=== PATIENT | female | born 1930 | race Caucasian/White ===

== ENCOUNTER 2020-01-01 15:33 | Inpatient (IN) | payer MEDICARE ==
[~2020-01-01] VITALS: Ht 162.6 cm; Wt 67.6 kg
--- NOTE | 2020-01-01 16:00 | NUR ---
Pt o2sat at 89% on RA pt placed on supplemental O2 via NC at 3lpm. Reassesed Pt O2Sat at 95% assisted pt to transfer from wheelchair to rney Pt is Aox1(name) Pt is repetitively saying " help me" noncompliant to wearing mask while coughing. Pt reoriented, redirected twice Daughter at bedside
--- NOTE | 2020-01-01 16:01 | NUR ---
AIRBORNE/DROPLET/CONTACT ISOLATION PRECAUTIONS PER POLICY INITIATED PT NON COMPLIANT ON WEARING PPE(MASK) AND NEEDS REORIENTATION/REMINDER TO WEAR IT WHEN COUGHING
[2020-01-01 16:16] LABS: BASOPHILS # (AUTO) 0.1 K/uL (0.0-8.0); BASOPHILS % (AUTO) 0.5 % (0.0-2.0); EOSINOPHILS # (AUTO) 0.3 K/uL (0.0-0.7); EOSINOPHILS % (AUTO) 2.6 % (0.0-7.0); HEMOGLOBIN 14.1 g/dL (10.9-14.3); LYMPHOCYTES # (AUTO) 1.7 K/uL (20.0-40.0); LYMPHOCYTES % (AUTO) 14.3 % (20.5-51.5); MEAN CORPUSCULAR HEMOGLOBIN 32.9 uug (24.7-32.8); MEAN CORPUSCULAR HGB CONC 33 g/dL (32.3-35.6); MEAN CORPUSCULAR VOLUME 100.1 fL (75.5-95.3); MONOCYTES % (AUTO) 8.3 % (0.0-11.0); NEUTROPHILS # (AUTO) 8.6 K/uL (1.8-8.9); NEUTROPHILS % (AUTO) 74.3 % (38.5-71.5); PLATELET COUNT (AUTO) 388 K/uL (179-408); WHITE BLOOD COUNT (AUTO) 11.6 K/uL (3.8-11.8)
[2020-01-01 16:22] LABS: CREATININE 1.2 mg/dL (0.6-1.3)
[2020-01-01 16:28] LABS: BILIRUBIN,DIRECT 0.1 mg/dL (0.0-0.2); BILIRUBIN,TOTAL 0.4 mg/dL (0.2-1.0)
[2020-01-01 16:41] LABS: THYROID STIMULATING HORMONE 7.126 mIU/mL (0.358-3.740)
[2020-01-01 16:45] LABS: *BILIRUBIN,URIN NEGATIVE (NEGATIVE); *BLOOD, URINE NEGATIVE (NEGATIVE); *COLOR,URINE YELLOW (YELLOW); *KETONES,URINE NEGATIVE (NEGATIVE); *UROBILINOGEN,URINE 0.2 E.U./dl (NORMAL); LEUKOCYTE ESTERASE ,URINE TRACE (NEGATIVE); NITRITE, URINE NEGATIVE (NEGATIVE); PH,URINE 5.5 (5.0-8.0); UGLUCOSE NEGATIVE (NEGATIVE)
[2020-01-01 16:46] LABS: *CLARITY,URINE HAZY (CLEAR)
[2020-01-01 16:50] LABS: BACTERIA,URINE FEW /HPF (NONE SEEN); MUCUS,URINE MODERATE /LPF (0-FEW); RBC,URINE 0-3 /HPF (0-3); SQUAMOUS EPITHELIAL CELL,UR MODERATE /HPF (NONE SEEN)
--- NOTE | 2020-01-01 17:00 | NUR ---
Pt transported to ct via [facility] by [facility]
--- NOTE | 2020-01-01 17:19 | NUR ---
pt back from ct via [facility] by tech
[2020-01-01] MEDS ORDERED: METRONIDAZOLE 500 MG/NS 100ML 100 ML IV ONE (17:58)
[2020-01-01] MEDS ORDERED: LEVOFLOXACIN 500 MG/D5W 100 ML ONE (17:58)
[2020-01-01] MEDS ORDERED: LEVOFLOXACIN 500 MG/D5W 100ML PIGGYBACK IV ONE (18:00)
[2020-01-01] MEDS ORDERED: METRONIDAZOLE 500 MG/NS 100 ML PIGGYBACK IV ONE (18:00)
--- NOTE | 2020-01-01 18:25 | NUR ---
SWALLOW EVAL DONE PT ABLE TO SIP AND SWALLOW 30ML OF WATER
--- NOTE | 2020-01-01 18:29 | NUR ---
PT ABLE TO TOLERATE 3 SPOONFULS OF VANILLA PUDDING AND ADDITIONAL 30ML OF WATER
[2020-01-01] MEDS ORDERED: LEVOTHYROXINE SODIUM 75 MCG TABLET PO ONE (18:45)
--- NOTE | 2020-01-01 18:59 | NUR ---
HAND OFF AND SBAR GIVEN TO INCOMING ENROLLMENT ADVISOR RN
--- NOTE | 2020-01-01 19:00 | NUR ---
Pt. admitted to [facility] , under care of Dr. Junior Belongs List completed
[2020-01-01] MEDS ORDERED: ACETAMINOPHEN 325 MG TABLET PO PRN (20:30)
[2020-01-01] MEDS ORDERED: MAGNESIUM HYDROXIDE 30 ML LIQUID UDC PO PRN (20:30)
[2020-01-01] MEDS ORDERED: ONDANSETRON 4 MG/2 ML VIAL IV PRN (20:30)
[2020-01-01] MEDS ORDERED: MORPHINE SULFATE 2 MG/1 ML DISP.SYRIN IV PRN (20:30)
[2020-01-01] MEDS ORDERED: BISACODYL 10 MG SUPP.RECT RC PRN (20:45)
--- NOTE | 2020-01-01 20:45 | NUR ---
Received patient awake and confused. Patient shows no signs or symptoms of distress at this time. Patient is on isolation for possible COVID. No fever or shortness of breath noted. Received admitting orders from Dr. Junior. Bed set to lowest position. Call light within reach. Will continue to monitor patient.
[2020-01-01 21:20] VITALS: BP 130/81
[2020-01-01] MEDS: IV 1/2NS 1000 ML 1,000 ML IV PRN (21:29)
[2020-01-01] MEDS: AZITHROMYCIN IV 500 MG in IV DEXTROSE 5% 250 ML IV SCH (21:29)
[2020-01-01] MEDS: DOCUSATE SODIUM 250 MG CAPSULE PO SCH (21:30)
[2020-01-01] MEDS: ALPRAZOLAM 0.25 MG TABLET PO PRN (21:30)
--- NOTE | 2020-01-01 21:30 | NUR ---
Patient agitated and continues to ask for help. Asked how nurse can help but patient states, "I don't know." Extra blankets given to patient because she states she is cold. PRN Xanax given to patient as per MD order to help with agitation. Will continue to monitor patient.
[2020-01-01] MEDS: CEFTRIAXONE 1 G in IV DEXTROSE 5% 50 ML IV SCH (23:03)
[2020-01-02] VITALS: BP 146/79
--- NOTE | 2020-01-02 01:23 | NUR ---
Patient shows no signs or symptoms of distress this time. Patient is resting comfortably at bed. Call light within reach. Bed set to lowest position. NSR on tele monitor. Will continue to monitor patient.
--- NOTE | 2020-01-02 03:47 | NUR ---
Patient has frequent PVCS with an occasional bigeminy. Vital signs are stable. Patient shows no signs or symptoms of distress. Will continue to monitor patient.
[2020-01-02 04:05] VITALS: BP 134/68
[2020-01-02 06:46] LABS: BASOPHILS % (AUTO) 0.3 % (0.0-2.0); EOSINOPHILS # (AUTO) 0.3 K/uL (0.0-0.7); EOSINOPHILS % (AUTO) 2.4 % (0.0-7.0); HEMATOCRIT 39.2 % (31.2-41.9); HEMOGLOBIN 13.4 g/dL (10.9-14.3); LYMPHOCYTES # (AUTO) 2.3 K/uL (20.0-40.0); LYMPHOCYTES % (AUTO) 21.2 % (20.5-51.5); MEAN CORPUSCULAR HGB CONC 34 g/dL (32.3-35.6); MEAN CORPUSCULAR VOLUME 99.4 fL (75.5-95.3); MONOCYTES % (AUTO) 8.8 % (0.0-11.0); NEUTROPHILS # (AUTO) 7.3 K/uL (1.8-8.9); NEUTROPHILS % (AUTO) 67.3 % (38.5-71.5); PLATELET COUNT (AUTO) 351 K/uL (179-408); RED BLOOD CELL COUNT(AUTO) 3.95 MIL/uL (3.63-4.92); WHITE BLOOD COUNT (AUTO) 10.9 K/uL (3.8-11.8)
--- NOTE | 2020-01-02 07:26 | NUR ---
Patient shows no signs or symptoms of distress at this time. Endorsed patient to AM shift in stable condition.
--- NOTE | 2020-01-02 07:30 | NUR ---
received patient in bed, awake, confused and kept calling out for help and daughter. On O2 @ 2L, took off mask. No signs of SOB. IV site on right AC 20g with 0.45 NS infusing @ 60cc/hr. Not able to answer questions correctly and kept asking for help. When asked what she needs, answered "I don't know." Patient trying to get up and get out of bed. Will call MD for restraints order. Bed alarm on, locked in lowest position with siderails 3x up. Will continue to monitor.
[2020-01-02 07:47] LABS: BILIRUBIN,TOTAL 0.6 mg/dL (0.2-1.0); CREATININE 1.1 mg/dL (0.6-1.3); MAGNESIUM 1.7 mg/dL (1.8-2.4); PHOSPHOROUS 4.6 mg/dL (2.5-4.9); POTASSIUM 3.8 mmol/L (3.5-5.1); TOTAL PROTEIN, SERUM 6.4 g/dL (6.4-8.2)
[2020-01-02 08:00] VITALS: BP 129/64
[2020-01-02] MEDS: MEMANTINE HCL 10 MG TABLET PO SCH ×2 (08:36→17:39)
[2020-01-02] MEDS: PANTOPRAZOLE SODIUM 40 MG TABLET.DR PO SCH (08:37)
[2020-01-02] MEDS: MULTIVITAMINS,THERAPEUTIC TABLET PO SCH (08:37)
[2020-01-02] MEDS ORDERED: DONEPEZIL 10 MG TABLET PO SCH (09:00)
[2020-01-02] MEDS ORDERED: Medication Not On Formulary EA (Multivitamins (Multivitamin) 1 TAB) PO SCH (09:00)
--- NOTE | 2020-01-02 09:25 | NUR ---
Patient refused medications. Tried to give with apple sauce and patient tried to spit out meds. Refused breakfast and would spit out food and water. Cleaned and changed patient and sheets with HEAD SOFT SUGAR OPERATOR and patient combative. Able to quickly give medications with apple sauce. Applied bilateral soft wrist restraints per MD order. Will continue to monitor.
--- NOTE | 2020-01-02 10:10 | NUR ---
rapid flu swab done.
[2020-01-02 12:10] VITALS: BP 115/65
[2020-01-02] MEDS: MAGNESIUM SULFATE/D5W 100 ML IV SCH ×2 (12:39→14:09)
[2020-01-02] MEDS: POTASSIUM CHLORIDE 50 ML IV SCH ×2 (15:17→17:39)
[2020-01-02 16:00] VITALS: BP 150/65
--- NOTE | 2020-01-02 16:15 | NUR ---
IV on right AC got dislodged. Patient kept bending and moving arms trying to take out restraints. Late IV potassium administration due to multiple IV attempts from different nurses. Patient very combative and patient is a hard stick.
--- NOTE | 2020-01-02 19:45 | NUR ---
Received patient awake and confused. Patient screams saying "help me" but when asked how nurse can help, patient denies needing any help. Patient shows no signs or symptoms of distress at this time. Vital signs stable. Has dry cough but does not have a fever or shortness of breath. Bilateral soft wrist restraints in place for safety. Patient attempts to remove IV without restraints. Will continue to monitor patient.
[2020-01-02] MEDS: AZITHROMYCIN IV 500 MG in IV DEXTROSE 5% 250 ML IV SCH (20:24)
[2020-01-02] MEDS: DOCUSATE SODIUM 100 MG CAPSULE PO SCH (20:24)
[2020-01-02 21:58] VITALS: BP 116/63
[2020-01-02] MEDS: CEFTRIAXONE 1 G in IV DEXTROSE 5% 50 ML IV SCH (22:43)
[2020-01-03 00:46] VITALS: BP 127/65
[2020-01-03] MEDS: IV 1/2NS 1000 ML 1,000 ML IV PRN ×2 (00:50→16:08)
--- NOTE | 2020-01-03 02:17 | NUR ---
Daughter unsure of code status for patient. Social service referral ordered.
[2020-01-03 04:02] VITALS: BP 140/78
[2020-01-03 06:10] LABS: BASOPHILS % (AUTO) 0.3 % (0.0-2.0); EOSINOPHILS # (AUTO) 0.3 K/uL (0.0-0.7); EOSINOPHILS % (AUTO) 2.5 % (0.0-7.0); HEMATOCRIT 39.5 % (31.2-41.9); HEMOGLOBIN 13.3 g/dL (10.9-14.3); LYMPHOCYTES # (AUTO) 2.2 K/uL (20.0-40.0); LYMPHOCYTES % (AUTO) 21.6 % (20.5-51.5); MEAN CORPUSCULAR HEMOGLOBIN 33.1 uug (24.7-32.8); MEAN CORPUSCULAR HGB CONC 34 g/dL (32.3-35.6); MEAN CORPUSCULAR VOLUME 98.4 fL (75.5-95.3); MONOCYTES % (AUTO) 9.7 % (0.0-11.0); NEUTROPHILS # (AUTO) 6.8 K/uL (1.8-8.9); NEUTROPHILS % (AUTO) 65.9 % (38.5-71.5); PLATELET COUNT (AUTO) 351 K/uL (179-408); RED BLOOD CELL COUNT(AUTO) 4.02 MIL/uL (3.63-4.92); WHITE BLOOD COUNT (AUTO) 10.3 K/uL (3.8-11.8)
[2020-01-03 06:37] LABS: CREATININE 1.1 mg/dL (0.6-1.3); MAGNESIUM 1.9 mg/dL (1.8-2.4); PHOSPHOROUS 4.3 mg/dL (2.5-4.9); POTASSIUM 3.8 mmol/L (3.5-5.1)
--- NOTE | 2020-01-03 07:26 | NUR ---
Patient shows no signs or symptoms of distress at this time. Patient resting comfortably in bed. Patient endorsed to AM nurse in stable condition.
--- NOTE | 2020-01-03 08:05 | NUR ---
Received patient in bed, No signs of distress noted. No signs of distress noted. No SOB. afebrile. No signs of pain or discomfort. On droplet and contact Isolation for r/o covid 19. Proper PPE strictly Observed. Kept clean and comfortable. Will continue to monitor.
[2020-01-03] MEDS: MULTIVITAMINS,THERAPEUTIC TABLET PO SCH (08:32)
[2020-01-03] MEDS: MEMANTINE HCL 10 MG TABLET PO SCH ×2 (08:32→16:08)
[2020-01-03] MEDS: PANTOPRAZOLE SODIUM 40 MG TABLET.DR PO SCH (08:32)
[2020-01-03 11:51] VITALS: BP 146/80
--- NOTE | 2020-01-03 18:21 | NUR ---
Patient in bed, awake and verbally responsive. No signs of distress noted. No SOB. saturating 96% on 1LPM. No complain of Pain or discomfort. awaiting for covid 19 test result. remains on contact/droplet Isolation for r/o covid19. All needs attended and met. kept clean and comfortable. Will endorse to Oncoming Nurse.
[2020-01-03 20:00] VITALS: BP 138/62
--- NOTE | 2020-01-03 20:00 | NUR ---
Received patient awake and alert in bed, no signs of acute distress noted. Patient is oriented to self and place. On contact and droplet isolation for r/o COVID. IVF running on the right wrist no s/s of infection or infiltration noted. Patient is on bilateral wrist restraints. Circulation is good. Safety measures initiated. Bed is low and locked, call light within reach. Bed alarm on. Will continue to monitor.
[2020-01-03] MEDS: AZITHROMYCIN IV 500 MG in IV DEXTROSE 5% 250 ML IV SCH (20:34)
[2020-01-03] MEDS: DOCUSATE SODIUM 100 MG CAPSULE PO SCH (20:34)
[2020-01-03] MEDS: ALPRAZOLAM 0.25 MG TABLET PO PRN (21:45)
[2020-01-03] MEDS: CEFTRIAXONE 1 G in IV DEXTROSE 5% 50 ML IV SCH (21:45)
--- NOTE | 2020-01-03 22:17 | NUR ---
Administered PRN Xanax, patient becoming anxious calling for daughter and asking for help, but unable to express what she needs. Patient cleaned and repositioned. Checked restraints, good circulation. Will continue to monitor.
[2020-01-04] VITALS: BP 152/79
[2020-01-04] MEDS ORDERED: Z GUARD REMEDY PASTE 57 GM TUBE TOP PRN (00:45)
[2020-01-04 04:19] VITALS: BP 157/68
--- NOTE | 2020-01-04 06:09 | NUR ---
Patient slept intermittently throughout the night. SR on the monitor. Vitals WNL. IVF running. Medications given as ordered. Restraints monitored. Will endorse to next shift.
[2020-01-04] MEDS: PANTOPRAZOLE SODIUM 40 MG TABLET.DR PO SCH (07:28)
--- NOTE | 2020-01-04 08:00 | NUR ---
Received patient in bed, awake and verbally responsive. No signs of distress noted. No SOB. saturating 96% on 1LPM, No complain of Pain or discomfort. awaiting for covid 19 test result. Remains on droplet and contact Isolation. Proper PPE strictly Observed. Kept clean and comfortable. Will continue to monitor.
[2020-01-04] MEDS: MEMANTINE HCL 10 MG TABLET PO SCH ×2 (08:29→16:24)
[2020-01-04] MEDS: MULTIVITAMINS,THERAPEUTIC TABLET PO SCH (08:29)
--- NOTE | 2020-01-04 09:05 | NUR ---
Covid [address] Junior made aware.
[2020-01-04] MEDS: IV 1/2NS 1000 ML 1,000 ML IV PRN (11:18)
[2020-01-04 11:34] VITALS: BP 118/55
[2020-01-04 15:35] VITALS: BP 120/79
--- NOTE | 2020-01-04 18:19 | NUR ---
Patient on bed, awake and verbally responsive. No signs of distress noted. No SOB. Afebrile. No complain of Pain or discomfort. covid19 resulted Negative, Dr. Junior made aware. Kept clean and comfortable. All needs attended and met. Will endorse to Oncoming Nurse.
[2020-01-04] MEDS: AZITHROMYCIN IV 500 MG in IV DEXTROSE 5% 250 ML IV SCH (20:10)
[2020-01-04] MEDS: DOCUSATE SODIUM 100 MG CAPSULE PO SCH (20:10)
[2020-01-04 20:13] VITALS: BP 123/84
[2020-01-04] MEDS ORDERED: CEFTRIAXONE 1 G VIAL ONE (21:28)
--- NOTE | 2020-01-04 22:05 | NUR ---
patient received lying in bed comfortably. a/o x2. no s/s of acute distress. v/s stable. all needs med. medications administered and tolerated well. fall precautions in place.
--- NOTE | 2020-01-04 22:06 | NUR ---
shift report given to night nurse.
[2020-01-04] MEDS: CEFTRIAXONE 1 G in IV DEXTROSE 5% 50 ML IV SCH (22:30)
[2020-01-05 05:00] VITALS: BP 119/68
[2020-01-05] MEDS: IV 1/2NS 1000 ML 1,000 ML IV PRN (05:23)
[2020-01-05] MEDS: PANTOPRAZOLE SODIUM 40 MG TABLET.DR PO SCH (06:26)
[2020-01-05 06:30] LABS: BASOPHILS # (AUTO) 0.1 K/uL (0.0-8.0); BASOPHILS % (AUTO) 0.6 % (0.0-2.0); EOSINOPHILS # (AUTO) 0.3 K/uL (0.0-0.7); EOSINOPHILS % (AUTO) 3.4 % (0.0-7.0); HEMATOCRIT 39.7 % (31.2-41.9); HEMOGLOBIN 13.4 g/dL (10.9-14.3); LYMPHOCYTES # (AUTO) 2.2 K/uL (20.0-40.0); LYMPHOCYTES % (AUTO) 21.3 % (20.5-51.5); MEAN CORPUSCULAR HEMOGLOBIN 33.6 uug (24.7-32.8); MEAN CORPUSCULAR HGB CONC 34 g/dL (32.3-35.6); MEAN CORPUSCULAR VOLUME 99.3 fL (75.5-95.3); MONOCYTES % (AUTO) 10.2 % (0.0-11.0); NEUTROPHILS # (AUTO) 6.5 K/uL (1.8-8.9); NEUTROPHILS % (AUTO) 64.5 % (38.5-71.5); PLATELET COUNT (AUTO) 377 K/uL (179-408); WHITE BLOOD COUNT (AUTO) 10.1 K/uL (3.8-11.8)
[2020-01-05 06:49] LABS: MAGNESIUM 1.7 mg/dL (1.8-2.4); PHOSPHOROUS 3.9 mg/dL (2.5-4.9); POTASSIUM 3.3 mmol/L (3.5-5.1)
--- NOTE | 2020-01-05 07:00 | NUR ---
Received patient in bed asleep but arousable by name and touch. Patient confused and oriented to self only. O2 @ 2L sat 96%. IV on RAC 20g intact and clean running 1/2 NS @ 60. Bruise on right hand noted. Soft bilateral wrist restraints on, no issues noted. Bed locked in lowest position with siderails 2x up. Bed alarm on. Will continue to monitor.
[2020-01-05 08:00] VITALS: BP 121/73
[2020-01-05] MEDS: MULTIVITAMINS,THERAPEUTIC TABLET PO SCH (08:22)
[2020-01-05] MEDS: MEMANTINE HCL 10 MG TABLET PO SCH ×2 (08:22→16:32)
--- NOTE | 2020-01-05 08:30 | NUR ---
Fed patient her breakfast. Refused at first but was able to educate her on importance of eating her food and taking her medication. Only ate 50% of breakfast and was able to give morning meds.
[2020-01-05] MEDS ORDERED: MAGNESIUM SULFATE/D5W 100 ML IV SCH (10:00)
[2020-01-05] MEDS ORDERED: POTASSIUM CHLORIDE 20 MEQ TAB.PRT.SR PO ONE (10:00)
[2020-01-05 12:00] VITALS: BP 119/69
--- NOTE | 2020-01-05 12:00 | NUR ---
Patient ate only 25% of lunch.
--- NOTE | 2020-01-05 12:30 | NUR ---
Patient urinated on pads and bed, cleaned and changed with Merlie. Patient also made a BM with soft, brown stool. Patient very combative and screaming. IV on right AC got dislodged, reinserted 20 g on left wrist.
[2020-01-05 16:00] VITALS: BP 106/55
--- NOTE | 2020-01-05 18:40 | NUR ---
continued to feed patient with much persuasion. Ate about 25% only. Patient urinated on bed and pads, cleaned and changed. Patient also made a BM with soft brown stool.
[2020-01-05 20:07] VITALS: BP 108/52
[2020-01-05] MEDS: DOCUSATE SODIUM 100 MG CAPSULE PO SCH (20:34)
[2020-01-05] MEDS: AZITHROMYCIN IV 500 MG in IV DEXTROSE 5% 250 ML IV SCH (20:34)
[2020-01-05] MEDS: ALPRAZOLAM 0.25 MG TABLET PO PRN (21:16)
[2020-01-05] MEDS: CEFTRIAXONE 1 G in IV DEXTROSE 5% 50 ML IV SCH (21:18)
[2020-01-06] MEDS: IV 1/2NS 1000 ML 1,000 ML IV PRN ×3 (03:20→20:23)
[2020-01-06 04:11] VITALS: BP 110/75
[2020-01-06] MEDS: PANTOPRAZOLE SODIUM 40 MG TABLET.DR PO SCH (06:16)
--- NOTE | 2020-01-06 06:28 | NUR ---
Pt rested well in between care; repositioned q2h; incontinence care done; BM x1; needs attended; remains pulling lines when off restraints; VSS; safety maintained; continue to monitor; continue plan of care.
[2020-01-06] MEDS: MULTIVITAMINS,THERAPEUTIC TABLET PO SCH (08:08)
[2020-01-06] MEDS: MEMANTINE HCL 10 MG TABLET PO SCH ×2 (08:08→17:12)
--- NOTE | 2020-01-06 09:30 | NUR ---
asleep but arouses easily, confused, oriented to self only, on 2L/nc 02, no dyspnea noted, head of bed elevated, aspiration precautions observed, fed with breakfast- ate 50%, am care done, incontinent of urine and stool, cleansed and kept clean and dry, warm blanket provided, turned to left side with pillows for support, heels off loaded with pillows, soft wrist restraints on, checked circulation q2h, safety measures maintained
[2020-01-06 12:00] VITALS: BP 124/67
--- NOTE | 2020-01-06 12:00 | NUR ---
fed and ate good, states "am hungry" and "delicious", no choking/coughing episodes noted, soft wrists restraints on since pt pulls tubes and tries to get out of bed.
[2020-01-06 16:25] VITALS: BP 114/56
--- NOTE | 2020-01-06 18:10 | NUR ---
dozing on and off in between care, repositioned q 2h with heels off loaded with pillows, appetite better, aspiration precautions observed, all needs attended and met, safety measures maintained
--- NOTE | 2020-01-06 20:00 | NUR ---
received patient resting in bed, easily to arouse. No signs of acute distress noted. No complaints of pain, on 2L NC saturating at 97% Vitals WNL. IVF running on the left forearm, no s/s of infection or infiltration. Patient is on bilateral wrist restraints for pulling on lines, circulation is good. Safety measures initiated. Aspiration precautions initiated. Bed is low and locked, bed alarm on. Will continue to monitor.
[2020-01-06] MEDS: AZITHROMYCIN IV 500 MG in IV DEXTROSE 5% 250 ML IV SCH (20:23)
[2020-01-06] MEDS: DOCUSATE SODIUM 100 MG CAPSULE PO SCH (20:23)
[2020-01-06 20:32] VITALS: BP 130/61
[2020-01-06] MEDS: ALPRAZOLAM 0.25 MG TABLET PO PRN (21:54)
[2020-01-07 04:47] VITALS: BP 146/72
--- NOTE | 2020-01-07 06:03 | NUR ---
Patient slept intermittently throughout the night. No distress noted. Left forearm IV infiltrated, inserted new IV on the right forearm #22 gauge. Turned, repositioned, and cleaned patient. Released restraints Q2H and checked circulation. Will endorse to next shift.
[2020-01-07] MEDS: PANTOPRAZOLE SODIUM 40 MG TABLET.DR PO SCH (06:21)
--- NOTE | 2020-01-07 07:20 | NUR ---
PATIENT RECEIVED IN BED, EYES OPEN, AWAKE. ALERT, ANSWERED SIMPLE QUESTIONS BUT IS CONFUSED AND SEEMED UNAWARE OF SURROUNDINGS. O2 CANULA REMOVED BY PT, BUT NO SOB NOTED. IV FLUID IN PROGRESS ORDERED. SHE HAS BILATERAL WRIST RESTRAINTS FOR SAFETY PT HAS TENDENCY TO PULL OUT LINES. PATIENT IN BED AND COMFORTABLE. WILL CONTINUE TO OBSERVE
[2020-01-07] MEDS: MEMANTINE HCL 10 MG TABLET PO SCH (08:32)
[2020-01-07] MEDS: MULTIVITAMINS,THERAPEUTIC TABLET PO SCH (08:32)
[2020-01-07 11:29] VITALS: BP 110/69
--- NOTE | 2020-01-07 14:10 | NUR ---
NOTED DISCHARGE ORDER FROM DR DUMONT CALLED [facility] AND REPORT GIVEN TO PHYLLIS FOR CONTINUES CARE CALLED THE [facility] STATED FIRST AVAILABLE DECORATIVE CUTTING MACHINE TENDER WILL BE AT 1700 TODAY
--- NOTE | 2020-01-07 15:45 | NUR ---
PATIENT DISCHARGED PICKED UP BY THE AMBULANCE IN SATISFACTORY CONDITION WITH HER LOWER DENTURES THERE IS NO DOCUMENTATION OF THE UPPER DENTURES BEING RECEIVED AND UPPER NOT SEEN.
== END 2020-01-07 15:45 | DRG 871 ==
LOC: ER 15:35 → MEDSURG3 20:22 → TELE3 21:26 → MEDSURG3 01-05 19:42
PROVIDERS: ADMIT Internal Medicine; ATTEND Internal Medicine
DX: A41.9 Sepsis, unspecified organism (principal); G92 Toxic encephalopathy; J96.01 Acute respiratory failure with hypoxia; J69.0 Pneumonitis due to inhalation of food and vomit; E43 Unspecified severe protein-calorie malnutrition; N17.0 Acute kidney failure with tubular necrosis; D68.69 Other thrombophilia; N39.0 Urinary tract infection, site not specified; R10.9 Unspecified abdominal pain; E03.9 Hypothyroidism, unspecified; F03.90 Unspecified dementia, unspecified severity, without behavioral disturbance, psychotic disturbance, mood disturbance, and anxiety; E78.5 Hyperlipidemia, unspecified; I25.10 Atherosclerotic heart disease of native coronary artery without angina pectoris; K52.9 Noninfective gastroenteritis and colitis, unspecified; Z86.73 Personal history of transient ischemic attack (TIA), and cerebral infarction without residual deficits; Z87.891 Personal history of nicotine dependence; Z98.1 Arthrodesis status; D75.89 Other specified diseases of blood and blood-forming organs; M41.86 Other forms of scoliosis, lumbar region; N83.292 Other ovarian cyst, left side; K59.00 Constipation, unspecified; I77.810 Thoracic aortic ectasia; M51.36 Other intervertebral disc degeneration, lumbar region; N20.0 Calculus of kidney; Z90.710 Acquired absence of both cervix and uterus; I49.3 Ventricular premature depolarization; E87.6 Hypokalemia; E83.42 Hypomagnesemia; R73.03 Prediabetes; Z68.25 Body mass index [BMI] 25.0-25.9, adult; D35.02 Benign neoplasm of left adrenal gland; R78.89 Finding of other specified substances, not normally found in blood; I35.8 Other nonrheumatic aortic valve disorders; K57.30 Diverticulosis of large intestine without perforation or abscess without bleeding
CPT/HCPCS: 36415; 51702; 70030-TC; 70450; 71045; 82378; 83605; 83690; 83735; 84100; 84443; 85025; 87040; 87086; 87400; 93005; 93307; A4663; C1758; G0378; J0456; J0696; J1956; J3475; J3480; J3490; J7060